=== PATIENT | male | born 1945 | race Caucasian/White ===

== ENCOUNTER → 2025-04-19 10:38 | Outpatient (REF) | payer MEDICARE, MEDICAID, SELFPAY | LOC: RAD 10:38 | PROVIDERS: ATTENDING PHYSICIAN Student in an Organized Health Care Education/Training Program; FAMILY PHYSICIAN Student in an Organized Health Care Education/Training Program | DX: I48.21 Permanent atrial fibrillation (principal); Z86.73 Personal history of transient ischemic attack (TIA), and cerebral infarction without residual deficits | CPT/HCPCS: 75572; Q9967 ==

== ENCOUNTER → 2025-05-07 13:05 | Outpatient (REF) | payer MEDICARE, OTHER, SELFPAY ==
[2025-05-07 13:55] LABS: Hematocrit 38.6 % (39.0-52.0); Hemoglobin 12.4 g/dL (13.0-18.0); Mean Corp Hgb Conc. 32.1 g/dL (33.0-37.0); Mean Corpuscular Volume 89.6 fL (80.0-94.0); Nucleated Red Blood Cells % 0 % (-); Platelet Count 219 10^3/uL (130-400); Red Cell Dist. Width 15.5 % (11.5-14.5)
[2025-05-07 14:03] LABS: INR 1.32; PT 16.5 Sec (11.4-14.6)
[2025-05-07 14:18] LABS: ALT (SGPT) 30 U/L (0-50); AST (SGOT) 28 U/L (17-59); Albumin 3.9 g/dl (3.5-5.0); Alkaline Phosphatase 107 U/L (38-126); Blood Urea Nitrogen 19 mg/dl (9-20); Calcium 10.5 mg/dl (8.4-10.2); Carbon Dioxide 29 mmol/L (22-30); Chloride 102 mmol/L (98-107); Glucose 108 mg/dl (70-99); Potassium 4.9 mmol/L (3.5-5.1); Sodium 136 mmol/L (135-145); Total Protein 7.1 g/dl (6.3-8.2); eGFR 56.23
== END ==
LOC: SDSPAT 13:05
PROVIDERS: ATTENDING PHYSICIAN Student in an Organized Health Care Education/Training Program; OTHER PHYSICIAN Student in an Organized Health Care Education/Training Program
DX: I48.21 Permanent atrial fibrillation (principal)
CPT/HCPCS: 36415; 80053; 85025; 85610; 86850; 86900; 86901; 93005

== ENCOUNTER 2025-05-14 05:56 | Inpatient (IN) | payer MEDICARE, OTHER, SELFPAY ==
[2025-05-07 13:15] VITALS: BMI 22.9
[2025-05-14] VITALS (13 sets, daily range): BP systolic 118–179; BP diastolic 79–113
[2025-05-14 08:46] LABS: ACT-LR - POC 388 Seconds (116-155)
--- NOTE | 2025-05-14 09:09 | ITS.CL.PN ---
Medical Transcriber - Procedure Note
Procedure
Procedure Note:
WATCHMAN LEFT ATRIAL APPENDAGE OCCLUSION REPORT
Date of Procedure: 05/14/2025
Referring: Tacho Rivera MD, PhD
Indication: Atrial fibrillation with high bleeding risk and high stroke risk
Operators: Tacho Rivera MD, PhD (interventional cardiology); Abhi Ashley MD (electrophysiology); Matthew Madrigal MD (cardiac imaging)
Anesthesia: general anesthesia provided by the anesthesia staff
PROCEDURE: left atrial appendage occlusion with a 35 mm Watchman FLX
ACCESS: 14F right common femoral vein (closure: figure of eight stitch) - Ultrasound was utilized for vascular access. The vessel was visualized under ultrasound and noted to be patent. An image of the vessel was stored permanently in the patient's
medical record. Under direct ultrasound guidance, vascular access was obtained using a modified Seldinger technique and an 8 Greek sheath was placed.
HEMODYNAMIC DATA
LA 15 mmHg
PROCEDURE NARRATIVE:
The patient was intubated and sedated by anesthesiology and then prepped and draped in standard sterile fashion. A LIZY probe was placed by cardiology and imaging performed demonstrating no left atrial appendage thrombus and no pericardial effusion.
Under ultrasound guidance, the right femoral vein was accessed by Dr. Ashley with an 8F sheath placed. Heparin was administered to achieve ACT>300.
The 8F sheath was exchanged over a [employer]way RF wire for the Watchman double curve sheath which was advanced to the SVC. The Watchman sheath was then pulled back under fluoroscopic and echo guidance until an appropriate inferior and posterior position
on the septum was achieved. During brief RF application, the wire was advanced through the interatrial septum into the left atrium. The wire was placed in the left upper pulmonary vein as confirmed by fluoroscopy and LIZY. The dilator and sheath
easily tracked across the septum allowing placement of the sheath in the left atrium. Left atrial pressure was measured at 15 mmHg.
A 5F pigtail catheter was advanced through the sheath and placed in the left atrial appendage, and an appendage gram was performed demonstrating anatomy suitable for a 35 mm Watchman FLX device. The device was prepped on the back table, the pigtail
catheter removed, and the device delivered via the sheath to the left atrial appendage by Dr. Rivera. The device was deployed slowly under continuous fluoroscopic and LIZY visualization. After deployment, LIZY imaging was performed to assess PASS
criteria. The device demonstrated excellent positioning, anchor stability on tug test, appropriate sizing with 22-28% compression, and appropriate seal with no leak at 0, 45, 90, or 135 degrees. Given PASS criteria were met, the device was then
released.
The delivery system retracted back into the sheath and removed from the body. The sheath was retracted into the right atrium with LIZY demonstrating no significant R-L shunt or pericardial effusion. The sheath was removed and the venotomy closed with
[id number] knot. Protamine 40 mg was given. The patient was extubated and tolerated the procedure well.
CONCLUSIONS
1. transseptal puncture with LIZY guidance
2. successful deployment of a 35 mm Watchman FLX device under fluoroscopic and LIZY guidance
RECOMMENDATIONS:
1. anticoagulation with Xarelto for 3 months
2. repeat LIZY in 3 months
Copy to: Tacho Rivera MD, PhD (sanipractic physician); Jono Santo DO (PCP)
Signed: Tacho Rivera MD, PhD
--- NOTE | 2025-05-14 13:14 | W.DS.TRANS ---
DC Summary - [employer] Worker
-
Discharge Instructions:
Discharge Diagnosis/Procedures AFib, s/p Watchman device implant
Diet Low Cholesterol
Driving Restrictions No driving for 24 hours
Instructions:
Stand-Alone Forms: DC Instructions- Cath/EP Lab
Changes to Home Medications: No
Discharge Medications:
DC Medications w/original date entered in [facility]
rivaroxaban 20 mg tablet (Xarelto) 20 mg PO QPM Blood clot prevention/tx 06/12/14
acetaminophen 325 mg tablet 650 mg PO Q4HPRN PRN mild pain/temp>100 09/14/22
albuterol sulfate 90 mcg/actuation aerosol inhaler 1 puff inhalation R DAILY Lung/breathing issues 09/14/22
atorvastatin 20 mg tablet 20 mg PO HS High cholesterol 09/14/22
bisacodyl 10 mg rectal suppository (Dulcolax (bisacodyl)) 10 mg [place] DAILY PRN if mom ineffective 09/14/22
dorzolamide 2 % eye drops 1 drp BOTH EYES BID Eye condition 09/14/22
lisinopril 40 mg tablet 40 mg PO DAILY Blood pressure 09/14/22
magnesium hydroxide 400 mg/5 mL oral suspension (Milk of Magnesia) 30 ml PO DAILY PRN if no bm x 3 days 09/14/22
metoprolol succinate 25 mg tablet,extended release 24 hr 25 mg PO DAILY Blood pressure 09/14/22
timolol maleate 0.5 % eye drops 1 drp BOTH EYES BID Eye condition 09/14/22
dextrose 40 % oral gel (Glucose Gel) 10 g PO Q15M PRN hypoglycemia 05/06/25
emollient combination no.69 (Eucerin Skin Calming cream) 1 applic topical BID itching 05/06/25
finasteride 5 mg tablet 5 mg PO DAILY 05/06/25
glucagon 1 mg solution for injection (Glucagon Emergency Kit) 1 mg [place] PRN PRN hypoglycemia, unresponsive 05/06/25
guaifenesin 100 mg/5 mL oral liquid (Niurka-Tussin) 200 mg PO Q4H PRN cough 05/06/25
hydralazine 25 mg tablet 25 mg PO TID 05/06/25
nitroglycerin 0.4 mg sublingual tablet (Nitrostat) 0.4 mg sublingual [id number] PRN chest pain 05/06/25
oxybutynin chloride 5 mg tablet,extended release 24 hr 5 mg PO DAILY 05/06/25
polyvinyl alcohol 1.4 % eye drops (Artificial Tears (polyvinyl alcohol)) 1 drp ophthalmic (eye) BID 05/06/25
sodium phosphates 19 gram-7 gram/118 mL enema (Ziqeg-Pn-Eeu Enema) 118 ml [place] PRN PRN constipation 05/06/25
furosemide 20 mg tablet 20 mg PO DAILY 05/07/25
sennosides 8.6 mg tablet (Senokot) 17.2 mg PO DAILY 05/07/25
Home Medication Changes
Pending Results: No
== END 2025-05-14 14:20 | disposition home or self-care (01) | DRG 274 ==
LOC: CATH-IN 05:56
PROVIDERS: ADMITTING PHYSICIAN Student in an Organized Health Care Education/Training Program
PROC: 02L73DK Occlusion of Left Atrial Appendage with Intraluminal Device, Percutaneous Approach (ICD-10-PCS; 2025-05-14)
PROC: B245ZZ4 Ultrasonography of Left Heart, Transesophageal (ICD-10-PCS; 2025-05-14)
DX: I48.21 Permanent atrial fibrillation (principal); Z00.6 Encounter for examination for normal comparison and control in clinical research program; I50.32 Chronic diastolic (congestive) heart failure; F03.94 Unspecified dementia, unspecified severity, with anxiety; D72.829 Elevated white blood cell count, unspecified; I11.0 Hypertensive heart disease with heart failure; E78.5 Hyperlipidemia, unspecified; I27.20 Pulmonary hypertension, unspecified; J84.10 Pulmonary fibrosis, unspecified; J43.9 Emphysema, unspecified; N31.9 Neuromuscular dysfunction of bladder, unspecified; D64.9 Anemia, unspecified; E83.52 Hypercalcemia; H40.9 Unspecified glaucoma; I45.10 Unspecified right bundle-branch block; I34.0 Nonrheumatic mitral (valve) insufficiency; N40.0 Benign prostatic hyperplasia without lower urinary tract symptoms; Z79.01 Long term (current) use of anticoagulants; Z79.899 Other long term (current) drug therapy; Z87.440 Personal history of urinary (tract) infections; Z87.891 Personal history of nicotine dependence; Z86.73 Personal history of transient ischemic attack (TIA), and cerebral infarction without residual deficits
CPT/HCPCS: 93005; 93355